=== PATIENT | male | born 2000 | race Caucasian/White ===

== ENCOUNTER 2023-10-07 12:02 | Emergency (ER) | payer SELFPAY ==
[~2023-10-07] VITALS: Ht 167.6 cm; Wt 70.0 kg
[2023-10-07 12:13] VITALS: O2SAT 100
[2023-10-07] MEDS ORDERED: IBUPROFEN 400MG TABLET PO ONE (13:15)
[2023-10-07] MEDS ORDERED: ACETAMINOPHEN 325MG TABLET PO ONE (13:15)
[2023-10-07 14:11] LABS: BASOPHILS % 0.4 % (0.0-2.0); EOSINOPHILS % 4.1 % (0.0-5.0); HEMATOCRIT. 48.6 % (42.0-52.0); HEMOGLOBIN. 16.6 g/dL (14.0-18.0); LYMPHOCYTES % 31.4 % (20.0-50.0); MEAN CORPUSCULAR HEMOGLOBIN 29.1 pg (28.0-32.0); MEAN CORPUSCULAR HGB CONC 34.2 g/dL (31.0-37.0); MEAN CORPUSCULAR VOLUME 85.2 fL (80.0-94.0); MEAN PLATELET VOLUME 7.5 fl (7.4-10.4); MONOCYTES % 5.7 % (2.0-8.0); NEUTROPHILS % 58.4 % (40.0-76.0); PLATELET 434 x1000/uL (130-400); RED CELL DISTRIBUTION WIDTH 14.3 % (11.6-14.6); WHITE BLOOD COUNT 7.8 x1000/uL (4.5-11.0)
[2023-10-07 14:13] LABS: CHLORIDE 103 mEq/L (98-107); POTASSIUM 4.2 mEq/L (3.5-5.1); SODIUM 137 mEq/L (136-145)
[2023-10-07 14:14] LABS: CALCIUM 10.2 mg/dL (8.7-10.4); CARBON DIOXIDE 28 mEq/L (21-32)
[2023-10-07 14:19] LABS: CREATININE 0.9 mg/dL (0.6-1.3); GLUCOSE 85 mg/dL (70-105); UREA NITROGEN BLOOD 9 mg/dL (9-23)
[2023-10-07 14:21] LABS: ALANINE AMINOTRANSFERASE 26 IU/L (10-49); ALBUMIN 5.5 g/dL (3.2-4.8); ASPARTATE AMINOTRANSFERASE 23 IU/L (<34); BILIRUBIN DIRECT 0.1 mg/dL (<=3.0); BILIRUBIN TOTAL 0.5 mg/dL (0.1-1.0); PROTEIN TOTAL 8.5 g/dL (6.0-8.3)
[2023-10-07 14:22] LABS: TROPONIN I HIGH SENSITIVITY < 4 ng/L (3.0-53)
[2023-10-07] MEDS ORDERED: IBUP-2028 MT (16:20)
[2023-10-07] MEDS: IBUPROFEN 400MG TABLET PO NR (16:38)
[2023-10-07] MEDS: ACETAMINOPHEN 325MG TABLET PO NR (16:38)
[2023-10-07 16:39] VITALS: BP 126/69; PULSE 84; RESP 16; TEMP 98
== END 2023-10-07 16:41 | disposition home or self-care (01) ==
LOC: ER 12:02
DX: R07.89 Other chest pain (principal)
CPT/HCPCS: 36415; 71045; 80048; 80076; 83880; 84484; 85025; 93005; 99285